=== PATIENT | female | born 1995 | race Caucasian/White ===

== ENCOUNTER 2017-03-18 13:11 | Emergency (ER) | payer MEDICAID ==
[~2017-03-18] VITALS: Ht 162.6 cm; Wt 100.2 kg
[~2017-03-18 13:11] MED LIST: AMOXICILLIN AN100 ML PO; AZITHROMYCIN250 MG PO; HYOSCYAMINE0.375 M1 PO; LORTAB 5/500 501 TAB PO; METHYLPREDNISONE4 MG PO; NECON 1/351 TAB PO; NOMEDS XX; OMEPRAZOLE20 MG PO; PHENERGAN12.5 M3 PO; TESSALON PERLE200 MG PO; TYLENOL W/CODEI1 TA2 PO
[2017-03-18] MEDS ORDERED: ASPIRIN ADULT L81 M2 PO (13:33)
[2017-03-18] MEDS ORDERED: IRON TABLETS325 MG PO (13:33)
[2017-03-18] MEDS ORDERED: PROCARDIA10 MG PO (13:33)
--- NOTE | 2017-03-18 13:42 | Urgent Treatment Center Report ---
History of Present Issue Date/Time Seen by Provider 03/18/17 1330 Visit Reason Pt arrived:Walked Presenting Problem:PT C/O FEVER, COUGH, RUNNY NOSE, AND PAIN IN BOTH EARS X1 WEEK Location if Accident: Onset of symptoms date/time:/ or onset unknown for:MEDICAL HX UNKNOWN Have you (or family members/close friends) recently traveled outside the [place]? N If Yes, where/when: Have you had exposure to infectious disease within the past month? TB? Other? Specify: Here w/ spouse and infant c/o runny nose, nasal congestion, sore throat, chills, intermittent mild headaches "that might be from hormones and not this". Symptoms x 2-3 days "since my son gave me this". Infant w/ same symptoms. Dx Chet OM. pt currently 30 weeks with twins. On procardia q4 hours due to labor. Sees OB in . Denies abdominal pain, cramping, vaginal leaking or bleeding. reports twins are moving "just like they normally would be". No treatment prior to arrival. Source patient Exam Limitations no limitations ALLERGIES Coded Allergies: carbinoxamine (From [facility]) (Mild, I-HIVES 07/15/15) cefaclor (From [facility]) (Mild, I-HIVES 07/15/15) pseudoephedrine (From [facility]) (Mild, I-HIVES 07/15/15) Home Medications Reported Medications PROMETHAZINE HCL (Phenergan 12.5MG Tab (Geq)) 12.5 MG PO DAILY #40 Aspirin 81 MG PO DAILY Ferrous Sulfate (Iron Tablet) 325 MG PO DAILY Nifedipine (Procardia) 10 MG PO DAILY History Medical History General CAD? No Angina: No [place]: No Hypertension? No Hyperlipidemia? No CHF? No DVT? No PE? No COPD? No Asthma? No Anemia? No GERD? No Gastric ulcers? No GI Bleed? No Hernia? No Thyroid Problems? No Hypothyroidism? No CVA? No Seizures? No Diabetes? No Renal Insuffiency? No UTI? No Stones? No BPH? No GB Disease: Yes Nephritic Syndrome? No Asplenia? No Hepatitis? No Sickle Cell Disease? No Arthritis? No Migraines? No Cataracts? No Glaucoma? No MRSA? No HIV? No TB? No Anxiety? No Depression? No Cancer? No More? No Immunization HX DT/Tetanus 1-4 YRS Surgical Hx Previous Surgery?Y EAR TUBES Tonsils Gallbladder (Other) Social History Smoking Hx Smoker: Never Smoker Tobacco: No Packs/day < 1 Pack Alcohol Alcohol: No Review of Systems All Other Systems Reviewed and Negative Constitutional see HPI, denies fever, denies malaise Eyes denies drainage ENT see HPI, ear pain ("more pressure"), nose congestion, throat pain (more at night and in morning). denies: ear discharge, throat swelling. Respiratory see HPI, cough (nonprod), shortness of breath (at baseline d/t ), denies stridor, denies wheezing Cardiovascular denies chest pain, denies edema Gastrointestinal see HPI Genitourinary see HPI. denies: dysuria, frequency. Skin denies rash Psychiatric/Neurological see HPI, denies other (dizziness) Physical Exam Vital Signs Vital Signs Date Time Temp Pulse Resp B/P Pulse O2 O2 Flow FiO2 Ox Delivery Rate 03/18 1358 98.2 125 20 144/85 100 03/18 1331 98.2 125 20 144/85 100 General Appearance no apparent distress, obvious Eye Exam - bilateral eye normal exam Ear, Nose, Throat normal ENT inspection (x/ nasal congestion) Neck non-tender, supple Respiratory Status Yes: trachea midline, chest symmetrical. No: respiratory distress, use of accessory muscles, pain on inspiration, pain on expiration, productive cough, non productive cough. Lung Sounds anterior: lungs clear. posterior: lungs clear. bilateral: lungs clear. Cardiovascular no peripheral edema, no murmur, tachycardia Neurologic alert, oriented x 3 Mental status normal mood/affect Skin normal color, warm/dry Lymphatic no adenopathy Medical Decision Making LABS/Meds/Orders Pt receiving controlled substance in ED? No Progress [facility] Progress Notes Date 03/18/17 Time 1345 Comment Discussed symptoms, high risk and treatment. Suggested we call OB. Pt reports she has appointment in the morning and rather just talk to him then. Offered multiple times to call today but pt feels it is not necessary at this time and will "either call this afternoon or see him in the morning". 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 Call him today and report symptoms. Son w/ same symptoms. Dx upper resp virus. No sign of a bacterial infection. Lungs clear. He will determine if you wants to prescribe you medications for the symptoms or not considering your recent labor episodes. Keep follow up appointment for tomorrow. ER/L&D for any new onset fever, abdominal pain, cramping, leaking, bleeding, change in movement. Patient Instructions DI for Viral Upper Respiratory Infection -- Adult Additional Instructions * No sign of bacterial infection. Likely viral. Virus can take 7-14 days to run their course but considering your high risk , call your OB today. * Monitor Temp. Tylenol every 4 hours as needed and/or ibuprofen every 6 hours as needed (as long as your primary care doctor has told you that it is ok to take both) for fever/aches/pain. ER if fever no less than 101 despite tylenol and ibuprofen * Encourage fluids, water, gatorade, powerade, pedialyte if infant/toddler/child * warm salt water gargles * warm fluids * sore throat lozenges * sleep elevated * humidifier/vaporizer Discharge Counseling Counseled pt/family regarding diagnosis, medications/RX, home care, follow up needs at 1435
[2017-03-18 13:58] VITALS: BP 144/85
== END 2017-03-18 13:59 | disposition home or self-care (01) ==
LOC: UTC 13:11
DX: O99.52 Diseases of the respiratory system complicating childbirth (principal); J06.9 Acute upper respiratory infection, unspecified; Z3A.30 30 weeks gestation of pregnancy